=== PATIENT | female | born 1965 | race African-American/Black ===

== ENCOUNTER 2023-04-12 18:48 | Emergency (ER) | payer BC, OTHER ==
[~2023-04-12] VITALS: Ht 154.9 cm; Wt 46.0 kg
[2023-04-12 19:13] VITALS: BP 137/97; PULSE 74; RESP 16; TEMP 98.6; O2SAT 100
== END 2023-04-12 23:55 | disposition left against medical advice (07) ==
LOC: ER 18:48
DX: I10 Essential (primary) hypertension (principal); Z91.199 Patient's noncompliance with other medical treatment and regimen due to unspecified reason
CPT/HCPCS: 99281